=== PATIENT | female | born 1985 | race African-American/Black ===

== ENCOUNTER 2018-07-28 10:08 | Emergency (ER) | payer OTHER ==
[~2018-07-28] VITALS: Ht 170.2 cm; Wt 79.4 kg
--- NOTE | 2018-07-28 11:14 | RAD ---
CT head without intravenous contrast History: Trauma to head this morning. Visual changes and headache. Comparison: None. Technique: Axial images are obtained of the head from the skull base through the vertex without IV contrast. Exposure: One or more of the following individualized dose reduction techniques were utilized for this examination: 1. Automated exposure control 2. Adjustment of the mA and/or kV according to patient size 3. Use of iterative reconstruction technique Findings: The ventricles are appropriate in size, shape, and location for the patient's age. No obvious intracranial mass, mass-effect, midline shift, hemorrhage or obvious acute infarction is identified. Basilar cisterns are patent. Bone windows demonstrate no acute calvarial abnormality. The visualized paranasal sinuses appear clear. Impression: 1. No acute intracranial process. Electronically signed by: Chin Ruffin MD (07/28/2018 11:11 AM) [facility]
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
[2018-07-28 11:48] VITALS: BP 150/106
[2018-07-28] MEDS ORDERED: IBUPROFEN 600 MG TABLET. PO ONE ×2 (11:50→12:00)
== END 2018-07-28 11:52 | disposition home or self-care (01) ==
LOC: ER 10:08
DX: S09.90XA Unspecified injury of head, initial encounter (principal); H53.8 Other visual disturbances; V89.2XXA Person injured in unspecified motor-vehicle accident, traffic, initial encounter; Y93.89 Activity, other specified; Y92.488 Other paved roadways as the place of occurrence of the external cause; Y99.8 Other external cause status
CPT/HCPCS: 70450; 99284-25